=== PATIENT | female | born 1965 | race African-American/Black ===

== ENCOUNTER 2021-01-09 11:39 | Emergency (ER) | payer OTHER ==
[~2021-01-09] VITALS: Ht 160 cm; Wt 90.7 kg
[2021-01-09 12:08] LABS: BASOPHILS # (AUTO) 0.1 K/uL (0.0-0.2); HEMATOCRIT 40 % (33-45); HEMOGLOBIN 13.4 g/dL (11.5-14.8); LYMPHOCYTES # (AUTO) 2.4 K/uL (0.8-4.8); LYMPHOCYTES % (AUTO) 24.1 % (20.0-44.0); MEAN CORPUSCULAR HGB CONC 33 g/dl (31.0-36.0); MEAN CORPUSCULAR VOLUME 89 fL (82-100); MONOCYTES # (AUTO) 0.7 K/uL (0.1-1.30); MONOCYTES % (AUTO) 6.7 % (2.0-12.0); NEUTROPHILS # (AUTO) 6.5 K/uL (1.8-8.9); NEUTROPHILS % (AUTO) 65.2 % (43.0-81.0); PLATELET COUNT (AUTO) 311 K/uL (150-450); RED BLOOD CELL COUNT(AUTO) 4.52 MIL/uL (4.0-5.2); WHITE BLOOD COUNT (AUTO) 9.9 K/uL (4.3-11.0)
[2021-01-09 12:21] LABS: ALBUMIN 3.9 g/dL (3.4-5.0); BILIRUBIN,DIRECT 0.1 mg/dL (0.0-0.2); BILIRUBIN,TOTAL 0.7 mg/dL (0.2-1.0); CALCIUM, SERUM 9.6 mg/dL (8.5-10.1); CREATININE 1.4 mg/dL (0.6-1.3)
--- NOTE | 2021-01-09 12:39 | NUR ---
55 years old female alert, oriented x4 presents to er with chest pain nausea, no vomiting, abdominal pain.
[2021-01-09] MEDS ORDERED: ONDANSETRON HCL/PF 4 MG/2 ML VIAL ONE (12:42)
[2021-01-09] MEDS: IV NS 0.9% 1,000 ML BAG IV ONE (12:50)
[2021-01-09] MEDS: ONDANSETRON HCL/PF 4 MG/2 ML VIAL IVP ONE (12:51)
[2021-01-09 13:41] LABS: THYROID STIMULATING HORMONE 0.783 uIU/mL (0.358-3.74)
--- NOTE | 2021-01-09 14:19 | NUR ---
patient resting, no cp, no sob, vital stable, denies nausea, vomiting.
[2021-01-09] MEDS: MAG HYDROX/AL HYDROX/SIMETH 30 ML UDC PO ONE (14:30)
[2021-01-09] MEDS: FAMOTIDINE/PF INJ 20 MG/2 ML VIAL IV ONE (14:30)
[2021-01-09] MEDS: LIDOCAINE VISCOUS 2% UD 15 ML UDC MM ONE (14:30)
[2021-01-09] MEDS ORDERED: ONDA4TAB5 PO (15:27)
[2021-01-09] MEDS ORDERED: FAMO-131 PO (15:27)
[2021-01-09] MEDS ORDERED: POLY17PO4 PO (15:27)
[2021-01-09] MEDS ORDERED: LIDOCAINE VISCOUS 2% UD 15 ML UDC ONE (15:43)
[2021-01-09] MEDS ORDERED: MAG HYDROX/AL HYDROX/SIMETH 30 ML UDC ONE (15:44)
[2021-01-09] MEDS ORDERED: FAMOTIDINE/PF INJ 20 MG/2 ML VIAL IV ONE (15:44)
--- NOTE | 2021-01-09 15:45 | NUR ---
patient condition improved d/c home with instructions after care reviewed understood left er with family alert, oriented x4 ambulatory with steady gait.
[2021-01-09 15:46] VITALS: BP 122/70
== END 2021-01-09 15:47 | disposition home or self-care (01) ==
LOC: ER 11:46
DX: R10.13 Epigastric pain (principal); K59.00 Constipation, unspecified; R07.89 Other chest pain; R00.0 Tachycardia, unspecified; E11.65 Type 2 diabetes mellitus with hyperglycemia; N28.9 Disorder of kidney and ureter, unspecified; I10 Essential (primary) hypertension; E78.5 Hyperlipidemia, unspecified; Z88.0 Allergy status to penicillin
CPT/HCPCS: 71045; 74176; 76705; 80048; 80076; 83690; 84439; 84443; 84484; 85025; 85378; 93005 ×2; 96374; 96375; 99285; J2405; J3490; J7030

== ENCOUNTER 2021-01-15 10:25 | Emergency (ER) | payer OTHER ==
[~2021-01-15] VITALS: Ht 160 cm; Wt 89.8 kg
[~2021-01-15 10:25] MED LIST: FAMO-131 PO; ONDA4TAB5 PO; POLY17PO4 PO
--- NOTE | 2021-01-15 10:48 | NUR ---
The patient bib for c/o RLQ abdominal pain, no BM x 10 days. Noted tachycardic (HR 118)but denies any chest discomfort/pain. In room air and denies SOB. Respiration regular and unlabored. Attached to the monitor. Warm blanket provided for comfort. Will continue to monitor the patient.
[2021-01-15 11:14] LABS: BASOPHILS # (AUTO) 0.1 K/uL (0.0-0.2); BASOPHILS % (AUTO) 0.5 % (0.0-2.0); EOSINOPHILS % (AUTO) 0.3 % (0.0-6.0); HEMATOCRIT 38 % (33-45); HEMOGLOBIN 12.6 g/dL (11.5-14.8); LYMPHOCYTES # (AUTO) 0.9 K/uL (0.8-4.8); LYMPHOCYTES % (AUTO) 6.6 % (20.0-44.0); MEAN CORPUSCULAR HGB CONC 33 g/dl (31.0-36.0); MEAN CORPUSCULAR VOLUME 88 fL (82-100); MONOCYTES # (AUTO) 1.1 K/uL (0.1-1.30); MONOCYTES % (AUTO) 7.4 % (2.0-12.0); NEUTROPHILS # (AUTO) 12.2 K/uL (1.8-8.9); NEUTROPHILS % (AUTO) 85.2 % (43.0-81.0); PLATELET COUNT (AUTO) 320 K/uL (150-450); WHITE BLOOD COUNT (AUTO) 14.3 K/uL (4.3-11.0)
[2021-01-15 11:28] LABS: ALBUMIN 3.4 g/dL (3.4-5.0); BILIRUBIN,DIRECT 0.2 mg/dL (0.0-0.2); BILIRUBIN,TOTAL 0.7 mg/dL (0.2-1.0); CALCIUM, SERUM 9.2 mg/dL (8.5-10.1); CREATININE 2.7 mg/dL (0.6-1.3); POTASSIUM 4.6 mmol/L (3.5-5.1); TOTAL PROTEIN, SERUM 8.9 g/dL (6.4-8.2)
[2021-01-15] MEDS: IV NS 0.9% 1,000 ML BAG IV ONE (11:59)
--- NOTE | 2021-01-15 12:01 | NUR ---
THE PATIENT IS TAKEN TO CT IN STABLE CONDITION.
--- NOTE | 2021-01-15 12:05 | NUR ---
MOVE SHEET SUBMITTED AND CALLED FOR MS BED.
--- NOTE | 2021-01-15 12:12 | NUR ---
THE PATIENT IS BACK FROM CT IN STABLE CONDITION.
--- NOTE | 2021-01-15 12:14 | NUR ---
COVID SWAB DONE AND SENT TO THE LAB
--- NOTE | 2021-01-15 13:44 | NUR ---
[facility] 338. Dr Cevallos aware.
[2021-01-15] MEDS ORDERED: INSULIN REGULAR, HUMAN 100 UNIT/ML 10 ML VIAL ONE ×2 (13:52→20:55)
--- NOTE | 2021-01-15 14:00 | NUR ---
Received an order from Dr Cevallos for regular insulin 6 units SQ once. Noted and carried out.
[2021-01-15] MEDS: INSULIN REGULAR, HUMAN 100 UNIT/ML 10 ML VIAL SQ ONE ×2 (14:03→21:10)
--- NOTE | 2021-01-15 14:03 | NUR ---
The patient stated that she does not feel like urinating at this time. Will try again later.
--- NOTE | 2021-01-15 14:13 | NUR ---
Room 309-1
--- NOTE | 2021-01-15 15:08 | NUR ---
PT GOING TO [facility] AWAITING TRANSFER INFO
--- NOTE | 2021-01-15 15:14 | NUR ---
Tylenol [address] Cevallos. The order is read back, verified. Noted and carried out.
--- NOTE | 2021-01-15 15:15 | NUR ---
The clinicals are faxed to [facility] fax [phone] tel [phone] Addendum: 01/15/21 at 1557 by EMIL tel [phone]
[2021-01-15] MEDS ORDERED: ACETAMINOPHEN ES 500 MG TABLET ONE ×3 (15:17→20:44)
[2021-01-15] MEDS: ACETAMINOPHEN ES 500 MG TABLET PO ONE ×2 (15:19→20:47)
--- NOTE | 2021-01-15 15:21 | NUR ---
Tylenol 1000 mg po given for c/o abdominal pain 09/11. Will continue to monitor the patient.
[2021-01-15 15:29] LABS: BILIRUBIN,URINE NEGATIVE (NEGATIVE); COLOR,URINE YELLOW (YELLOW); NITRITE, URINE NEGATIVE (NEGATIVE); PH,URINE 5.5 (5.0-8.0); PROTEIN,URINE 30 mg/dl (NEGATIVE); UGLUCOSE >=1000 mg/dL (NEGATIVE); UROBILINOGEN,URINE 0.2 EU/dL (0.2)
[2021-01-15 15:40] LABS: LEUKOCYTE ESTERASE ,URINE MODERATE (NEGATIVE)
[2021-01-15 15:41] LABS: BACTERIA,URINE 4+ /HPF (None Seen); SQUAMOUS EPITHELIAL CELL,UR Few /HPF (None Seen); WBC,URINE 81-100 /HPF (0-3)
[2021-01-15 15:44] LABS: HYALINE CASTS, URINE Few /LPF (None Seen)
--- NOTE | 2021-01-15 15:59 | NUR ---
LEFT MESSAGE TO [facility]
--- NOTE | 2021-01-15 16:20 | NUR ---
PER [employer] DRIVER MARCIE THEY ARE WORKING FOR THE PATIENT TO GO TO [facility].
--- NOTE | 2021-01-15 18:02 | NUR ---
[facility] ROOM 6125 REPORT: [phone]
--- NOTE | 2021-01-15 18:10 | NUR ---
[facility] WANTS REPORT AFTER 190
--- NOTE | 2021-01-15 18:17 | NUR ---
[facility] CONFIRMATION: [phone] WAITING FOR ETA CALL BACK.
--- NOTE | 2021-01-15 19:38 | NUR ---
CALLED [id number] [phone] [facility] WILL BE THERE AT 2100
--- NOTE | 2021-01-15 19:57 | NUR ---
[facility] CALLED FROM TRANSFER C[facility] [phone] ABOUT [facility] ETA OF 2099
--- NOTE | 2021-01-15 20:42 | NUR ---
TELEPHONE CALL TO [facility] AT [phone], REPORT GIVEN TO CORE CLEANERSOM HUNT PT GOING TO ROOM 6121 6 [address]. ADVISED OF ETA 2100.
--- NOTE | 2021-01-15 21:24 | NUR ---
UPDATED AMBULANCE ETA: 0484
--- NOTE | 2021-01-15 21:33 | NUR ---
CALLED [id number] NEW ETA IS 2200 [facility]
[2021-01-15 22:00] VITALS: BP 120/70
--- NOTE | 2021-01-15 22:10 | NUR ---
CALLED [id number] [phone] [facility] #[id number] FOR [facility] OF A NEW ETA. [facility] CONTACTING TRANSPORT ETA 5 MINS.
--- NOTE | 2021-01-15 22:20 | NUR ---
REPORT GIVEN TO ROBBI RIVAS, PT TRANSFERRED TO [address] ROOM 6121 VIA GURNEY ACCOMPANIED BY PT'S MOTHER AND 2 EMT PERSONNEL, IN STABLE CONDITION.
== END 2021-01-15 22:20 | disposition short-term general hospital (02) ==
LOC: ER 10:25
DX: N17.9 Acute kidney failure, unspecified (principal); E11.65 Type 2 diabetes mellitus with hyperglycemia; R10.11 Right upper quadrant pain; E78.5 Hyperlipidemia, unspecified; K44.9 Diaphragmatic hernia without obstruction or gangrene; K76.0 Fatty (change of) liver, not elsewhere classified; D72.829 Elevated white blood cell count, unspecified; Z20.822 Contact with and (suspected) exposure to COVID-19
CPT/HCPCS: 36415; 71045; 74176; 76705; 80048; 80076; 81001; 82962 ×2; 83690; 85025; 87077; 87086; 87186; 87426; 96360; 96372 ×2; 99285; C9803; J1815 ×2; J7030

== ENCOUNTER 2021-03-09 20:53 | Emergency (ER) | payer OTHER ==
[~2021-03-09] VITALS: Ht 162.6 cm; Wt 88.5 kg
[2021-03-09 20:54] VITALS: BP 133/79
[2021-03-09 21:28] LABS: BASOPHILS # (AUTO) 0.1 K/uL (0.0-0.2); BASOPHILS % (AUTO) 1.2 % (0.0-2.0); EOSINOPHILS % (AUTO) 0.4 % (0.0-6.0); HEMATOCRIT 38 % (33-45); HEMOGLOBIN 12.4 g/dL (11.5-14.8); LYMPHOCYTES # (AUTO) 2.2 K/uL (0.8-4.8); LYMPHOCYTES % (AUTO) 18.4 % (20.0-44.0); MEAN CORPUSCULAR HGB CONC 32 g/dl (31.0-36.0); MEAN CORPUSCULAR VOLUME 90 fL (82-100); MONOCYTES # (AUTO) 0.7 K/uL (0.1-1.30); MONOCYTES % (AUTO) 6.3 % (2.0-12.0); NEUTROPHILS # (AUTO) 8.7 K/uL (1.8-8.9); NEUTROPHILS % (AUTO) 73.7 % (43.0-81.0); PLATELET COUNT (AUTO) 410 K/uL (150-450); RED BLOOD CELL COUNT(AUTO) 4.25 MIL/uL (4.0-5.2); WHITE BLOOD COUNT (AUTO) 11.8 K/uL (4.3-11.0)
[2021-03-09] MEDS ORDERED: ONDANSETRON 4 MG TAB.RAPDIS SL ONE (21:30)
[2021-03-09] MEDS ORDERED: ONDANSETRON 4 MG TAB.RAPDIS ONE (21:35)
[2021-03-09 21:39] LABS: CALCIUM, SERUM 10.1 mg/dL (8.5-10.1); CREATININE 1.4 mg/dL (0.6-1.3); POTASSIUM 4.4 mmol/L (3.5-5.1)
[2021-03-09 21:46] LABS: ALBUMIN 4.2 g/dL (3.4-5.0); BILIRUBIN,DIRECT 0.1 mg/dL (0.0-0.2); BILIRUBIN,TOTAL 0.4 mg/dL (0.2-1.0); TOTAL PROTEIN, SERUM 9.1 g/dL (6.4-8.2)
== END 2021-03-09 23:20 ==
LOC: ER 20:54
DX: R11.0 Nausea (principal); E11.9 Type 2 diabetes mellitus without complications; N28.9 Disorder of kidney and ureter, unspecified; Z20.822 Contact with and (suspected) exposure to COVID-19; E78.5 Hyperlipidemia, unspecified; Z88.0 Allergy status to penicillin; Z88.2 Allergy status to sulfonamides; Z91.14 Patient's other noncompliance with medication regimen
CPT/HCPCS: 36415; 80048; 80076; 82962; 83690; 85025; 87426; 99283; C9803; Q0162